=== PATIENT | female | born 1990 | race African-American/Black ===

== ENCOUNTER 2018-06-10 19:33 | Emergency (ER) | payer MEDICAID, OTHER ==
[~2018-06-10] VITALS: Ht 167.6 cm; Wt 90.7 kg
[2018-06-10 21:13] LABS: Basophils # (auto) 0.1 uL; Basophils % (auto) 0.5 % (0.0-2.0); Eosinophils # (auto) 0.4 uL; Hemoglobin 8.2 g/dL (12.2-16.2); Lymphocytes # (auto) 1.6 uL; Lymphocytes % (auto) 15.6 % (10.0-50.0); Mean Corpuscular Volume 56.1 fL (80.0-100.0); Monocytes # (auto) 1.1 uL; White Blood Cell 10.2 10^3/uL (4.4-10.8)
[2018-06-10 21:15] LABS: Eosinophils % (auto) 3.8 % (0.0-7.0); Hematocrit 27.6 % (36.0-46.0); Mean Corpuscular Hemoglobin 16.7 pg (28.0-32.0); Mean Corpuscular Hgb Conc. 29.8 g/dL (32.0-36.0); Monocytes % (auto) 11.2 % (0.0-12.0); Neutrophils % (auto) 68.9 % (37.0-80.0); Platelet Count (auto) 390 10^3/uL (140-450); Red Blood Cells 4.91 10^6/uL (4.0-5.20); Red Cell Distribution Width 17.8 % (11.8-14.3)
[2018-06-10 21:32] LABS: Albumin 3.9 g/dL (3.4-5.0); Anion Gap 7 (5-15); Aspartate Aminotransferase 10 U/L (15-37); BUN/Creatinine Ratio 9.5; Blood Urea Nitrogen 9 mg/dL (7-18); Calcium 8.6 mg/dL (8.5-10.1); Carbon Dioxide 23 mmol/L (21-32); Chloride 106 mmol/L (98-107); GFR African American 90 mL/min; GFR Non-African American 74 mL/min; Glucose 109 mg/dL (74-106); Magnesium 1.9 mg/dL (1.6-2.6); Potassium 3.6 mmol/L (3.5-5.1); Sodium 136 mmol/L (136-145)
[2018-06-10 21:41] LABS: Alanine Aminotransferase 19 U/L (13-56); Alkaline Phosphatase 61 U/L (45-117); Bilirubin, Total 0.7 mg/dL (0.2-1.0); Total Protein 8.1 g/dL (6.4-8.2)
[2018-06-10] MEDS ORDERED: LEVOFLOXACIN 750MG 150 ML IV ONE (22:30)
[2018-06-10] MEDS ORDERED: SODIUM CHLORIDE 0.9% 1,000 ML IV ONE (22:30)
[2018-06-10] MEDS ORDERED: ACETAMINOPHEN 325 MG TAB PO ONE (22:30)
[2018-06-10 22:36] LABS: Urine Bacteria NONE SEEN /hpf (None Seen); Urine Blood Negative /uL (Negative); Urine Specific Gravity 1.007 (1.001-1.035); Urine WBC 1 /hpf (0 - 5)
[2018-06-11 01:23] VITALS: BP 107/66
== END 2018-06-11 02:20 | disposition home or self-care (01) ==
LOC: ER 19:33
DX: K52.9 Noninfective gastroenteritis and colitis, unspecified (principal); R51 Headache; R07.89 Other chest pain
CPT/HCPCS: 36415; 71046; 80053; 81001; 83735; 84443; 84484; 85025; 93005; 96365; 96366; 99284; J1956; J7030

== ENCOUNTER 2020-09-23 12:03 | Inpatient (IN) | payer MEDICAID ==
[~2020-09-23] VITALS: Ht 170.2 cm; Wt 88.0 kg
[2020-09-23] MEDS ORDERED: SODIUM CHLORIDE 0.9% 1,000 ML IVB ONE (12:30)
[2020-09-23 12:50] LABS: Basophils # (auto) 0.1 10 ^3/uL (0-0.2); Eosinophils # (auto) 0.2 10 ^3/uL (0-0.8); Hemoglobin 8.5 g/dL (12.2-16.2); Lymphocytes # (auto) 1.5 10 ^3/uL (0.4-5.4); Lymphocytes % (auto) 19.2 % (10.0-50.0); Mean Corpuscular Volume 59.6 fL (80.0-100.0); Monocytes # (auto) 0.8 10 ^3/uL (0-1.3); Red Cell Distribution Width 16.3 % (11.8-14.3)
[2020-09-23 12:51] LABS: Eosinophils % (auto) 2.8 % (0.0-7.0); Hematocrit 27.1 % (36.0-46.0); Mean Corpuscular Hemoglobin 18.7 pg (28.0-32.0); Mean Corpuscular Hgb Conc. 31.3 g/dL (32.0-36.0); Monocytes % (auto) 10.2 % (0.0-12.0); Neutrophils # (auto) 5.3 10 ^3/uL (1.6-8.6); Neutrophils % (auto) 66.8 % (37.0-80.0); Platelet Count (auto) 354 10^3/uL (140-450); Red Blood Cells 4.54 10^6/uL (4.0-5.20); White Blood Cell 7.9 10^3/uL (4.4-10.8)
[2020-09-23 13:01] LABS: Albumin 3.9 g/dL (3.4-5.0); BUN/Creatinine Ratio 10.5; Calcium 8.5 mg/dL (8.5-10.1); Potassium 3.7 mmol/L (3.5-5.1)
[2020-09-23 13:04] LABS: Bilirubin, Total 0.3 mg/dL (0.2-1.0); Total Protein 7.9 g/dL (6.4-8.2)
[2020-09-23 13:39] LABS: INR 1.04 (0.9-1.15); Partial Thromboplastin Time 22.8 sec (23.0-31.2)
[2020-09-23 13:46] LABS: Urine Bacteria NONE SEEN /hpf (None Seen); Urine Blood Negative /uL (Negative); Urine Hyaline Cast FEW /lpf (0 - 2); Urine Mucus MODERATE (None Seen); Urine Specific Gravity 1.032 (1.001-1.035); Urine WBC 8 /hpf (0 - 5)
[2020-09-23] MEDS ORDERED: ONDANSETRON HCL 4 MG/2 ML VIAL IV ONE (14:15)
[2020-09-23] MEDS ORDERED: MORPHINE SULF INJ 2 MG/ML SYRINGE 1ML IV ONE (14:15)
[2020-09-23] MEDS ORDERED: PANTOPRAZOLE 40 MG/10 ML VIAL INJ IV ONE (14:45)
[2020-09-23] MEDS ORDERED: cefTRIAXone 1GM/50ML D5W 50 ML IV ONE (15:45)
[2020-09-23] MEDS ORDERED: metroNIDAZOLE 500MG/100ML 100 ML IV ONE (15:45)
[2020-09-23] MEDS ORDERED: ACETAMINOPHEN 500 MG TAB PO PRN (16:45)
[2020-09-23] MEDS ORDERED: HYDROcodone-ACET 5/325MG TAB PO PRN (16:45)
[2020-09-23] MEDS ORDERED: NITROGLYCERIN 0.4 MG SL TAB SL PRN (16:45)
[2020-09-23] MEDS ORDERED: MORPHINE SULF INJ 2 MG/ML SYRINGE 1ML IV PRN ×2 (16:45)
[2020-09-23] MEDS ORDERED: SODIUM FERR GLUC 62.5MG/5ML 125 MG in SODIUM CHL 0.9% 100 ML IV ONE (16:45)
[2020-09-23] MEDS ORDERED: ONDANSETRON HCL 4 MG/2 ML VIAL IV PRN (16:45)
[2020-09-23 18:30] VITALS: BP 109/69
[2020-09-23 20:32] LABS: CRP High Sensitivity 0.07 mg/dL (< 0.3)
[2020-09-23 22:06] VITALS: BP 95/54
[2020-09-24 05:04] VITALS: BP 104/66
[2020-09-24 06:14] LABS: Basophils # (auto) 0.1 10 ^3/uL (0-0.2); Eosinophils # (auto) 0.3 10 ^3/uL (0-0.8); Lymphocytes # (auto) 1.3 10 ^3/uL (0.4-5.4); Neutrophils # (auto) 3.6 10 ^3/uL (1.6-8.6)
[2020-09-24 06:17] LABS: Eosinophils % (auto) 5.4 % (0.0-7.0); Hematocrit 26.5 % (36.0-46.0); Hemoglobin 8.3 g/dL (12.2-16.2); Lymphocytes % (auto) 22.8 % (10.0-50.0); Mean Corpuscular Hemoglobin 18.8 pg (28.0-32.0); Mean Corpuscular Hgb Conc. 31.6 g/dL (32.0-36.0); Mean Corpuscular Volume 59.5 fL (80.0-100.0); Monocytes # (auto) 0.6 10 ^3/uL (0-1.3); Monocytes % (auto) 10.5 % (0.0-12.0); Neutrophils % (auto) 60.3 % (37.0-80.0); Platelet Count (auto) 294 10^3/uL (140-450); Red Blood Cells 4.45 10^6/uL (4.0-5.20); Red Cell Distribution Width 16.2 % (11.8-14.3); White Blood Cell 5.9 10^3/uL (4.4-10.8)
[2020-09-24] MEDS: PANTOPRAZOLE 40 MG/10 ML VIAL INJ IV SCH (08:58)
[2020-09-24 09:00] VITALS: BP 99/61
[2020-09-24 13:00] VITALS: BP 115/70
[2020-09-24 22:00] VITALS: BP 120/79
[2020-09-25 05:22] LABS: Basophils # (auto) 0.1 10 ^3/uL (0-0.2); Basophils % (auto) 1.2 % (0.0-2.0); Eosinophils # (auto) 0.5 10 ^3/uL (0-0.8); Hemoglobin 8.6 g/dL (12.2-16.2); Mean Corpuscular Volume 59.5 fL (80.0-100.0)
[2020-09-25 05:24] LABS: Eosinophils % (auto) 7.6 % (0.0-7.0); Hematocrit 27.5 % (36.0-46.0); Lymphocytes # (auto) 1.9 10 ^3/uL (0.4-5.4); Lymphocytes % (auto) 29.4 % (10.0-50.0); Mean Corpuscular Hemoglobin 18.7 pg (28.0-32.0); Mean Corpuscular Hgb Conc. 31.4 g/dL (32.0-36.0); Monocytes # (auto) 0.8 10 ^3/uL (0-1.3); Monocytes % (auto) 11.4 % (0.0-12.0); Neutrophils # (auto) 3.3 10 ^3/uL (1.6-8.6); Neutrophils % (auto) 50.4 % (37.0-80.0); Nucleated Red Blood Cells % 0.1 %; Platelet Count (auto) 304 10^3/uL (140-450); Red Blood Cells 4.62 10^6/uL (4.0-5.20); Red Cell Distribution Width 16.1 % (11.8-14.3); White Blood Cell 6.6 10^3/uL (4.4-10.8)
[2020-09-25 05:43] LABS: Potassium 3.3 mmol/L (3.5-5.1)
[2020-09-25 05:45] LABS: BUN/Creatinine Ratio 6.7; Calcium 8.6 mg/dL (8.5-10.1)
[2020-09-25 09:00] VITALS: BP 122/80
[2020-09-25] MEDS: PANTOPRAZOLE 40 MG/10 ML VIAL INJ IV SCH (11:08)
[2020-09-25] MEDS ORDERED: POTASSIUM CHL 20 Meq TABLET PO ONE (11:30)
[2020-09-25 13:00] VITALS: BP 111/77
[2020-09-25] MEDS ORDERED: GOLYTELY 4L KIT PO ONE (14:00)
[2020-09-25 17:00] VITALS: BP 131/77
[2020-09-25 22:00] VITALS: BP 111/77
[2020-09-26 05:00] VITALS: BP 101/63
[2020-09-26] MEDS ORDERED: MAGNESIUM CITRATE SOLUTION 300 ML BTL PO ONE (06:00)
[2020-09-26] MEDS ORDERED: GOLYTELY 4L KIT PO ONE (06:00)
[2020-09-26 06:01] LABS: Basophils # (auto) 0.1 10 ^3/uL (0-0.2); Eosinophils # (auto) 0.4 10 ^3/uL (0-0.8); Mean Corpuscular Hemoglobin 18.6 pg (28.0-32.0); Monocytes # (auto) 0.8 10 ^3/uL (0-1.3); Neutrophils # (auto) 3.4 10 ^3/uL (1.6-8.6); Nucleated Red Blood Cells % 0.1 %
[2020-09-26 06:04] LABS: Basophils % (auto) 1.2 % (0.0-2.0); Eosinophils % (auto) 5.5 % (0.0-7.0); Hematocrit 28.5 % (36.0-46.0); Hemoglobin 8.8 g/dL (12.2-16.2); Lymphocytes # (auto) 2.3 10 ^3/uL (0.4-5.4); Lymphocytes % (auto) 33.5 % (10.0-50.0); Mean Corpuscular Hgb Conc. 30.7 g/dL (32.0-36.0); Mean Corpuscular Volume 60.4 fL (80.0-100.0); Monocytes % (auto) 11.2 % (0.0-12.0); Neutrophils % (auto) 48.6 % (37.0-80.0); Platelet Count (auto) 333 10^3/uL (140-450); Red Blood Cells 4.72 10^6/uL (4.0-5.20); Red Cell Distribution Width 16.3 % (11.8-14.3)
[2020-09-26 06:21] LABS: Potassium 3.9 mmol/L (3.5-5.1)
[2020-09-26 06:33] LABS: BUN/Creatinine Ratio 8.7; Calcium 8.7 mg/dL (8.5-10.1)
[2020-09-26] MEDS ORDERED: SODIUM CHLORIDE LOCK 10 ML ONE (08:29)
[2020-09-26 08:52] VITALS: BP 114/75
[2020-09-26] MEDS: fentaNYL CITRATE 100 MCG/2 ML VL ONE ×3 (09:26→09:37)
[2020-09-26] MEDS: diphenhdrAMINE HCL 50 MG/1 ML VL ONE ×2 (09:26→09:31)
[2020-09-26] MEDS: MIDAZOLAM HCL 5 MG/ML-1ML VIAL ONE ×4 (09:26→09:37)
[2020-09-26] MEDS: PANTOPRAZOLE 40 MG/10 ML VIAL INJ IV SCH (10:00)
[2020-09-26 13:00] VITALS: BP 112/71
[2020-09-26] MEDS: methylPREDNISolone SOD SUCC 40 MG/ML VL IV SCH ×2 (13:57→23:00)
[2020-09-26] MEDS: metroNIDAZOLE 500MG/100ML 100 ML IV SCH ×2 (13:57→23:01)
[2020-09-26 17:00] VITALS: BP 110/67
[2020-09-26 22:00] VITALS: BP 103/64
[2020-09-27 05:37] VITALS: BP 101/55
[2020-09-27] MEDS: metroNIDAZOLE 500MG/100ML 100 ML IV SCH ×3 (06:00→21:49)
[2020-09-27] MEDS: methylPREDNISolone SOD SUCC 40 MG/ML VL IV SCH ×3 (06:00→21:49)
[2020-09-27 06:28] LABS: Basophils # (auto) 0 10 ^3/uL (0-0.2); Eosinophils # (auto) 0 10 ^3/uL (0-0.8); Hemoglobin 8.7 g/dL (12.2-16.2); Lymphocytes # (auto) 1.2 10 ^3/uL (0.4-5.4); Monocytes # (auto) 0.3 10 ^3/uL (0-1.3); Platelet Count (auto) 365 10^3/uL (140-450)
[2020-09-27 06:32] LABS: Basophils % (auto) 0.3 % (0.0-2.0); Hematocrit 28.1 % (36.0-46.0); Lymphocytes % (auto) 11.4 % (10.0-50.0); Mean Corpuscular Hemoglobin 18.8 pg (28.0-32.0); Mean Corpuscular Hgb Conc. 31.2 g/dL (32.0-36.0); Mean Corpuscular Volume 60.4 fL (80.0-100.0); Monocytes % (auto) 2.8 % (0.0-12.0); Neutrophils # (auto) 9.1 10 ^3/uL (1.6-8.6); Neutrophils % (auto) 85.5 % (37.0-80.0); Red Blood Cells 4.65 10^6/uL (4.0-5.20); Red Cell Distribution Width 16.4 % (11.8-14.3); White Blood Cell 10.7 10^3/uL (4.4-10.8)
[2020-09-27 06:46] LABS: Albumin 3.5 g/dL (3.4-5.0); Calcium 8.7 mg/dL (8.5-10.1); Potassium 4.2 mmol/L (3.5-5.1)
[2020-09-27 06:51] LABS: BUN/Creatinine Ratio 13.6; Bilirubin, Total 0.3 mg/dL (0.2-1.0); Total Protein 7.7 g/dL (6.4-8.2)
[2020-09-27 09:00] VITALS: BP 112/78
[2020-09-27] MEDS: PANTOPRAZOLE 40 MG/10 ML VIAL INJ IV SCH (10:01)
[2020-09-27] MEDS: levoFLOXacin 500MG 100 ML IV SCH (10:01)
[2020-09-27 13:00] VITALS: BP 114/79
[2020-09-27 17:05] VITALS: BP 111/67
[2020-09-27 21:00] VITALS: BP 107/69
[2020-09-28 05:00] VITALS: BP 100/66
[2020-09-28] MEDS: metroNIDAZOLE 500MG/100ML 100 ML IV SCH ×3 (05:28→21:55)
[2020-09-28 06:23] LABS: Basophils # (auto) 0 10 ^3/uL (0-0.2); Basophils % (auto) 0.1 % (0.0-2.0); Eosinophils # (auto) 0 10 ^3/uL (0-0.8); Red Cell Distribution Width 16.2 % (11.8-14.3)
[2020-09-28 06:27] LABS: Hematocrit 27.2 % (36.0-46.0); Hemoglobin 8.4 g/dL (12.2-16.2); Lymphocytes # (auto) 1.4 10 ^3/uL (0.4-5.4); Lymphocytes % (auto) 8.2 % (10.0-50.0); Mean Corpuscular Hemoglobin 18.6 pg (28.0-32.0); Mean Corpuscular Hgb Conc. 30.8 g/dL (32.0-36.0); Mean Corpuscular Volume 60.4 fL (80.0-100.0); Monocytes # (auto) 0.9 10 ^3/uL (0-1.3); Monocytes % (auto) 5.3 % (0.0-12.0); Neutrophils % (auto) 86.4 % (37.0-80.0); Platelet Count (auto) 344 10^3/uL (140-450); White Blood Cell 17.3 10^3/uL (4.4-10.8)
[2020-09-28 06:39] LABS: Potassium 3.8 mmol/L (3.5-5.1)
[2020-09-28 06:43] LABS: BUN/Creatinine Ratio 14.1; Calcium 8.2 mg/dL (8.5-10.1)
[2020-09-28 08:53] VITALS: BP 103/58
[2020-09-28] MEDS: PANTOPRAZOLE 40 MG/10 ML VIAL INJ IV SCH (10:19)
[2020-09-28] MEDS: methylPREDNISolone SOD SUCC 40 MG/ML VL IV SCH ×2 (10:19→21:55)
[2020-09-28] MEDS: levoFLOXacin 500MG 100 ML IV SCH (10:19)
[2020-09-28 13:00] VITALS: BP 107/69
[2020-09-28 16:41] VITALS: BP 110/67
[2020-09-28] MEDS ORDERED: FLUCONAZOLE 100 MG TAB PO ONE (16:45)
[2020-09-28 22:00] VITALS: BP 114/66
[2020-09-29 05:00] VITALS: BP 119/77
[2020-09-29] MEDS: metroNIDAZOLE 500MG/100ML 100 ML IV SCH (05:31)
[2020-09-29 05:50] LABS: Basophils # (auto) 0 10 ^3/uL (0-0.2); Basophils % (auto) 0.1 % (0.0-2.0); Eosinophils # (auto) 0 10 ^3/uL (0-0.8); Hemoglobin 9.1 g/dL (12.2-16.2); Mean Corpuscular Hemoglobin 18.8 pg (28.0-32.0); Monocytes # (auto) 0.5 10 ^3/uL (0-1.3); Neutrophils # (auto) 9.8 10 ^3/uL (1.6-8.6); Nucleated Red Blood Cells % 0.1 %; Red Blood Cells 4.85 10^6/uL (4.0-5.20); White Blood Cell 11.9 10^3/uL (4.4-10.8)
[2020-09-29 05:53] LABS: Hematocrit 29.6 % (36.0-46.0); Lymphocytes # (auto) 1.6 10 ^3/uL (0.4-5.4); Lymphocytes % (auto) 13.2 % (10.0-50.0); Mean Corpuscular Hgb Conc. 30.8 g/dL (32.0-36.0); Monocytes % (auto) 4.5 % (0.0-12.0); Neutrophils % (auto) 82.2 % (37.0-80.0); Platelet Count (auto) 352 10^3/uL (140-450); Red Cell Distribution Width 16.6 % (11.8-14.3)
[2020-09-29 06:05] LABS: Potassium 4.1 mmol/L (3.5-5.1)
[2020-09-29 06:29] LABS: Calcium 8.2 mg/dL (8.5-10.1)
[2020-09-29 08:00] VITALS: BP_SYST 106; BP_SYST 125; BP_DIAS 66; BP_DIAS 70
[2020-09-29 09:00] VITALS: BP 106/70
[2020-09-29] MEDS ORDERED: LEVO750T64 PO (10:06)
[2020-09-29] MEDS ORDERED: PRED20TA2 PO (10:06)
[2020-09-29] MEDS ORDERED: METR500T PO (10:06)
[2020-09-29] MEDS: levoFLOXacin 500MG 100 ML IV SCH (10:38)
[2020-09-29] MEDS: PANTOPRAZOLE 40 MG/10 ML VIAL INJ IV SCH (10:39)
[2020-09-29] MEDS: methylPREDNISolone SOD SUCC 40 MG/ML VL IV SCH (10:39)
== END 2020-09-29 12:36 | disposition home or self-care (01) | DRG 245 ==
LOC: ER 12:03 → TELE 12:04 → TELE-EAST 17:59 → TELE-CENTR 09-24 13:29
PROVIDERS: ADMIT Nurse Practitioner Acute Care; ATTEND Internal Medicine Pulmonary Disease
PROC: 0DBL8ZX Excision of Transverse Colon, Via Natural or Artificial Opening Endoscopic, Diagnostic (ICD-10-PCS; principal; 2020-09-26 09:30)
DX: K51.911 Ulcerative colitis, unspecified with rectal bleeding (principal); K65.4 Sclerosing mesenteritis; D50.0 Iron deficiency anemia secondary to blood loss (chronic); N20.0 Calculus of kidney; K64.8 Other hemorrhoids; K64.4 Residual hemorrhoidal skin tags; E87.6 Hypokalemia; Z20.822 Contact with and (suspected) exposure to COVID-19; Z80.0 Family history of malignant neoplasm of digestive organs; Z82.49 Family history of ischemic heart disease and other diseases of the circulatory system
CPT/HCPCS: 36415; 45380; 74176; 80048; 80053; 81001; 82270; 82378; 83615; 83735; 84702; 85025; 85610; 85652; 85730; 86141; 86850; 86900; 86901; 87045; 87426; 87427; 96361; 96365; 96368; 96375; C9113; G0378; J0696; J1956; J2250; J2405; J3490